=== PATIENT | female | born 1960 | race Caucasian/White ===

== ENCOUNTER 2019-03-12 07:50 | Day surgery (SDC) | payer BC ==
[2019-03-12] MEDS ORDERED: Propofol 200 MG/20 ML SDV IV ONE (07:51)
[2019-03-12] MEDS ORDERED: Lidocaine 1% PF 2 ML SDV INJECT ONE (07:51)
[2019-03-12] MEDS ORDERED: Sodium Chloride 0.9% 10 ML Syringe FLUSH PRN (08:00)
[2019-03-12] MEDS ORDERED: Lactated Ringers 1,000 ML IV SCH (08:00)
[2019-03-12] MEDS ORDERED: Simethicone Drops 40 MG/0.6 ML 30 ML Bottle ONE (09:02)
--- NOTE | 2019-03-12 09:17 | PCM.OPNOTE ---
- General Post-Op/Procedure Note Date of Surgery/Procedure: 03/12/19 Operative Procedure(s): c scope Findings: internal hemorrhoids Pre Op Diagnosis: hematochezia Post-Op Diagnosis: internal hemorrhoids Anesthesia Technique: LEELA Primary Surgeon: Danis Lopez Anesthesia Provider: Contreras Yost Pathology: none Complications: None Condition: Good Free Text/Narrative:: see dictation
--- NOTE | 2019-03-12 09:43 | OR ---
DATE OF OPERATION: 03/12/2019 SURGEON: Danis Lopez MD PROCEDURE PERFORMED: Colonoscopy. PREOPERATIVE DIAGNOSIS: Hematochezia. POSTOPERATIVE DIAGNOSIS: Internal hemorrhoids. INDICATIONS FOR PROCEDURE: This is a 58-year-old white female, referred with a history of some bright red blood per rectum. She was offered and accepted a colonoscopy. DESCRIPTION OF OPERATION: After an excellent IV sedation was administered, digital rectal exam was performed. No marked abnormality was noted. Flexible colonoscope was inserted and advanced to the cecum. Prep was excellent. Following findings were noted. Ascending colon, unremarkable. Transverse colon, unremarkable. Descending colon, unremarkable. Sigmoid, unremarkable. Rectum and anus, unremarkable. On retroflexion of the scope, there was evidence of some internal hemorrhoids appeared to be consistent with a grade 2. No active bleeding was noted. I am going to recommend a high-fiber diet. Follow up on a p.r.n. basis for banding as needed. /[id number] SAVANNA/DADA
== END 2019-03-12 10:11 | disposition home or self-care (01) ==
LOC: FB.SDS 07:50
PROVIDERS: ATTEND Surgery
DX: K64.8 Other hemorrhoids (principal); K21.9 Gastro-esophageal reflux disease without esophagitis; I10 Essential (primary) hypertension; E78.2 Mixed hyperlipidemia; F32.9 Major depressive disorder, single episode, unspecified; F41.9 Anxiety disorder, unspecified; M47.22 Other spondylosis with radiculopathy, cervical region; E66.9 Obesity, unspecified; Z68.38 Body mass index [BMI] 38.0-38.9, adult; Z87.891 Personal history of nicotine dependence; Z79.899 Other long term (current) drug therapy
CPT/HCPCS: 45378; A9270; J2001; J2704; J7120